=== PATIENT | female | born 1985 | race Caucasian/White ===

== ENCOUNTER → 2025-05-04 | Outpatient (CLI) | payer OTHER ==
[~2025-05-04] MED LIST: AMOX500 PO; CODGUAEL PO; FOLI1 PO; MULVITMINE PO; NAPR220
== END ==
LOC: LAB SHORT 11:38 → LAB 11:38
DX: Z01.419 Encounter for gynecological examination (general) (routine) without abnormal findings (principal)
CPT/HCPCS: 87624; G0123